=== PATIENT | female | born 1995 | race Caucasian/White ===

== ENCOUNTER 2018-05-10 14:13 | Outpatient (REF) | payer BC, SELFPAY ==
--- NOTE | 2018-05-10 09:30 | PAPFT_PTH ---
PATIENT: Walter Mondragon LOC: [facility] U#:[id number] AGE/SX: 23/F ROOM: RE05/10/[address]: Nigel Hernandez : 1995 BED: DIS: 05/10/2018 SPEC #: [id number] RECD: 05/11/18 12:56 STATUS: TAYLOR REQ #: [id number] CRALI: 05/10/18 09:[address]: Nigel Hernandez DEPT: [facility] Cytology RECD BY: Karen Johnson ENTERED: 05/11/18 12:57 SP TYPE: PAPFT OTHR DR: Unknown,Unknown Tissues: 1 - CX/ENDOCX FOR PAP SMEARS Procedures: PAP THIN PREP/[facility] Screening Comments: [id number] (CHLAMYDIA/GC)
[2018-05-10 21:46] LABS: ALT 41 U/L (12-78); AST 17 U/L (15-37); Albumin 3.8 g/dL (3.4-5.0); Alkaline Phosphatase 83 U/L (46-116); Anion Gap 9.2 mmol/L (3-11); BUN 15 mg/dL (7-18); Bilirubin, Total 0.2 mg/dL (0.2-1.0); CO2 27.8 mmol/L (21.0-32.0); CREATININE 0.74 mg/dL (0.55-1.02); Calcium 8.7 mg/dL (8.5-10.1); Chloride 105 mmol/L (98-107); Cholesterol 133 mg/dL (50-200); Glucose 83 mg/dL (70-100); HDL Cholesterol 37 mg/dL (40-60); LDL CHOLESTEROL 88 mg/dL (<100); Potassium 4.1 mmol/L (3.5-5.1); Sodium 142 mmol/L (136-145); Total Protein 7.4 g/dL (6.4-8.2); Triglyceride 69 mg/dL (30-150)
[2018-05-10 21:53] LABS: Hemoglobin A1C 5.4 % (4.5-6.2)
[2018-05-14 15:30] LABS: Chlamydia Result Negative; GC Result Negative; Specimen Description SEE COMMENTS
== END 2018-05-10 14:33 ==
LOC: NCHCN 14:13
PROVIDERS: Visit Provider Family Medicine
DX: Z00.00 Encounter for general adult medical examination without abnormal findings (principal); E66.9 Obesity, unspecified; Z12.4 Encounter for screening for malignant neoplasm of cervix; Z11.3 Encounter for screening for infections with a predominantly sexual mode of transmission
CPT/HCPCS: 80053; 80061; 83721; 87491; 87591; 88142; 83036

== ENCOUNTER 2019-05-13 08:09 | Outpatient (REF) | payer BC, SELFPAY ==
[2019-05-13 22:09] LABS: Hemoglobin A1C 5.2 % (4.5-6.2)
[2019-05-13 22:19] LABS: ALT 29 U/L (14-59); AST 16 U/L (15-37); Alkaline Phosphatase 90 U/L (46-116); Anion Gap 9.9 mmol/L (3-11); BUN 15 mg/dL (7-18); Bilirubin, Total 0.4 mg/dL (0.2-1.0); CO2 28.1 mmol/L (21.0-32.0); CREATININE 0.86 mg/dL (0.55-1.02); Calculated LDL 70 mg/dL; Chloride 104 mmol/L (98-107); Cholesterol 122 mg/dL (50-200); Glucose 86 mg/dL (70-100); HDL Cholesterol 36 mg/dL (40-60); Potassium 3.8 mmol/L (3.5-5.1); Sodium 142 mmol/L (136-145); Total Protein 7.6 g/dL (6.4-8.2); Triglyceride 80 mg/dL (30-150)
== END 2019-05-13 08:29 ==
LOC: NCHCN 08:09
PROVIDERS: Visit Provider Family Medicine
DX: Z00.00 Encounter for general adult medical examination without abnormal findings (principal); E28.2 Polycystic ovarian syndrome; E78.6 Lipoprotein deficiency; L60.3 Nail dystrophy; E66.01 Morbid (severe) obesity due to excess calories
CPT/HCPCS: 80053; 80061; 83036; 84443

== ENCOUNTER 2020-05-19 19:45 | Outpatient (REF) | payer OTHER, BC, SELFPAY ==
[2020-05-19 21:13] LABS: ALT 30 U/L (14-59); AST 15 U/L (15-37); Albumin 4.3 g/dL (3.4-5.0); Alkaline Phosphatase 88 U/L (46-116); Anion Gap 6.3 mmol/L (3-11); BUN 11 mg/dL (7-18); Bilirubin, Total 0.4 mg/dL (0.2-1.0); CO2 29.7 mmol/L (21.0-32.0); Calcium 9.1 mg/dL (8.5-10.1); Calculated LDL 100 mg/dL (<100); Chloride 103 mmol/L (98-107); Cholesterol 153 mg/dL (<200); Glucose 84 mg/dL (74-106); HDL Cholesterol 34 mg/dL (40-60); Potassium 3.8 mmol/L (3.5-5.1); Sodium 139 mmol/L (136-145); Triglyceride 98 mg/dL (<150)
[2020-05-27 16:07] LABS: HIV-1/2 Ag & Ab Screen Negative (Negative)
[2020-05-27 16:17] LABS: Syphilis Serology (RPR) Negative (Negative)
== END 2020-05-19 20:05 ==
LOC: NCHCN 19:45
PROVIDERS: PCP Family Medicine; Visit Provider Family Medicine
DX: Z00.00 Encounter for general adult medical examination without abnormal findings (principal); Z11.3 Encounter for screening for infections with a predominantly sexual mode of transmission
CPT/HCPCS: 80053; 80061; 87389; 86592

== ENCOUNTER 2020-05-21 18:40 | Outpatient (REF) | payer OTHER, BC, SELFPAY ==
[2020-05-27 13:05] LABS: Chlamydia Result Negative (Negative); GC Result Negative (Negative)
== END 2020-05-21 19:00 ==
LOC: NCHCN 18:40
PROVIDERS: PCP Family Medicine; Visit Provider Family Medicine
DX: Z11.3 Encounter for screening for infections with a predominantly sexual mode of transmission (principal)
CPT/HCPCS: 87491; 87591; 87480; 87510; 87660

== ENCOUNTER 2021-05-18 08:16 | Outpatient (REF) | payer OTHER, BC, SELFPAY ==
[2021-05-18 15:14] LABS: ALT 32 U/L (14-59); AST 13 U/L (15-37); Alkaline Phosphatase 79 U/L (46-116); Anion Gap 8.6 mmol/L (3-11); BUN 13 mg/dL (7-18); Bilirubin, Total 0.3 mg/dL (0.2-1.0); CO2 28.4 mmol/L (21.0-32.0); CREATININE 0.8 mg/dL (0.55-1.02); Calcium 8.8 mg/dL (8.5-10.1); Calculated LDL 83 mg/dL (<100); Chloride 105 mmol/L (98-107); Cholesterol 131 mg/dL (<200); Glucose 92 mg/dL (74-106); HDL Cholesterol 34 mg/dL (40-60); Potassium 4.2 mmol/L (3.5-5.1); Sodium 142 mmol/L (136-145); Total Protein 7.4 g/dL (6.4-8.2); Triglyceride 71 mg/dL (<150)
== END 2021-05-18 08:17 | disposition home or self-care (01) ==
LOC: NCHCN 08:16
PROVIDERS: PCP Family Medicine; Visit Provider Family Medicine
DX: Z00.00 Encounter for general adult medical examination without abnormal findings (principal); Z13.220 Encounter for screening for lipoid disorders
CPT/HCPCS: 80053; 80061

== ENCOUNTER 2021-12-23 17:15 | Outpatient (REF) | payer OTHER, SELFPAY | END 2021-12-23 17:16 | disposition home or self-care (01) | LOC: NCHCN 17:15 | PROVIDERS: PCP Family Medicine; Visit Provider Nurse Practitioner Family | DX: R35.0 Frequency of micturition (principal) | CPT/HCPCS: 87086 ==

== ENCOUNTER 2021-12-31 16:01 | Outpatient (REF) | payer OTHER, SELFPAY | END 2021-12-31 16:02 | disposition home or self-care (01) | LOC: NCHCN 16:01 | PROVIDERS: PCP Family Medicine; Visit Provider Family Medicine | DX: R35.0 Frequency of micturition (principal) | CPT/HCPCS: 87086 ==

== ENCOUNTER 2022-10-24 16:21 | Outpatient (REF) | payer SELFPAY ==
[2022-10-26 14:18] LABS: Chlamydia Result Negative (Negative); GC Result Negative (Negative)
== END 2022-10-24 16:22 | disposition home or self-care (01) ==
LOC: NCHCN 16:21
PROVIDERS: PCP Family Medicine; Visit Provider Internal Medicine
DX: Z11.3 Encounter for screening for infections with a predominantly sexual mode of transmission (principal)
CPT/HCPCS: 87491; 87591

== ENCOUNTER 2022-11-29 17:58 | Outpatient (REF) | payer SELFPAY | END 2022-11-29 17:59 | disposition home or self-care (01) | LOC: NCHCN 17:58 | PROVIDERS: PCP Family Medicine; Visit Provider Nurse Practitioner Family | DX: N39.0 Urinary tract infection, site not specified (principal) | CPT/HCPCS: 87086 ==

== ENCOUNTER 2023-01-04 16:26 | Outpatient (REF) | payer SELFPAY | END 2023-01-04 16:27 | disposition home or self-care (01) | LOC: NCHCN 16:26 | PROVIDERS: PCP Family Medicine; Visit Provider Family Medicine | DX: J02.9 Acute pharyngitis, unspecified (principal) | CPT/HCPCS: 87070 ==